=== PATIENT | male | born 1995 | race Caucasian/White ===

== ENCOUNTER 2016-11-26 02:41 | Emergency (ER) | payer OTHER ==
[~2016-11-26] VITALS: Ht 200.7 cm; Wt 127.0 kg
--- NOTE | ~2016-11-26 | CR142 ---
[facility] A Service of [facility] RADIOLOGY TEXT RESULTS PATIENT: SANTINO MURRAY LOCATION: [facility] : [birth year] UNIT #: [id number] AGE: [address]: Kylah Ellington SEX: M ORDER DR: [id number] [facility] [address] [place], [place] [address] [id number] MR#: [id number] Acc #: [id number] NAME: SANTINO MURRAY : 1995 SEX: M STUDY DATE/TIME: 11/26/2016 04:41 UNIT: [facility] ROOM: STUDY DESCRIPTION: CR Hand Min 3 Views Rt Attending Physician: Kylah Ellington Pa-C Ordering Physician: Kylah Ellington Pa-C Primary Care Physician: Ryder PerkinsPBony MEDICAL IMAGING REPORT This report is preliminary unless electronic signature is present EXAM Right hand 11/26/2016 at 04:41 INDICATIONS Hand pain today. No trauma. FINDINGS AP, lateral, and oblique projections of the hand show good mineralization with normal carpal, metacarpal, and phalangeal anatomy without indication of fracture, dislocation, or soft tissue radiopaque foreign body. IMPRESSION Normal hand. Dictated by... Pravin Zambrano Jr., M.D. THIS IS AN ELECTRONICALLY VERIFIED REPORT Pravin Zambrano Jr., M.D. at 11/27/2016 4:16 AM ERINN/thien TD: 11/27/2016 00:29 JOB #: [id number] MEDICAL IMAGING REPORT Page 1 of 1 COPY
== END 2016-11-26 05:15 | disposition home or self-care (01) ==
LOC: CED 02:41
DX: S60.221A Contusion of right hand, initial encounter (principal); F17.210 Nicotine dependence, cigarettes, uncomplicated; W22.8XXA Striking against or struck by other objects, initial encounter; Y93.67 Activity, basketball
CPT/HCPCS: 73130; 99283